=== PATIENT | male | born 1940 | race Two or more races ===

== ENCOUNTER 2018-02-05 07:00 | Day surgery (SDC) | payer OTHER ==
[~2018-02-05] VITALS: Ht 170.2 cm; Wt 68.0 kg
[~2018-02-05 07:00] MED LIST: ADULT ASPIRIN81 MG; ATORVASTATIN CA40 MG; CARVEDILOL3.125 MG; CIPROFLOXACIN750 MG PO; CLONAZEPAM1 MG PO; DOCUSATE SODIU100 MG PO; ENALAPRIL MALE2.5 MG; FINASTERIDE5 MG; GABAPENTIN800 MG PO; GLIPIZIDE10 MG; METFORMIN HCL500 M2; PERCOCET 5/3251 TAB PO; TAMS0.4C
[2018-02-06] MEDS ORDERED: DOCUSATE SODIU100 MG PO (09:37)
[2018-02-06] MEDS ORDERED: GABAPENTIN800 MG PO (09:37)
[2018-02-06] MEDS ORDERED: AMOX-CLAV 875-1 EACH PO (09:40)
[2018-02-06] MEDS ORDERED: PERCOCET 5-3251 EACH PO (09:41)
[2018-02-06] MEDS ORDERED: CLONAZEPAM1 MG PO (09:41)
== END 2018-02-06 08:00 | disposition home or self-care (01) ==
LOC: CIR.AMB 07:00 → O/R 12:30 → EDSTATUS 12:30 → O/R 13:30 → PED 15:09 → O/R 15:09 → CIR.AMB 02-06 08:00 → O/R 02-06 13:37 → PED 02-06 13:37
DX: M48.061 Spinal stenosis, lumbar region without neurogenic claudication (principal); I25.10 Atherosclerotic heart disease of native coronary artery without angina pectoris; I10 Essential (primary) hypertension; E11.9 Type 2 diabetes mellitus without complications; I25.2 Old myocardial infarction

== ENCOUNTER 2018-03-21 19:42 | Emergency (ER) | payer OTHER ==
[~2018-03-21] VITALS: Ht 170.2 cm; Wt 59.0 kg
[~2018-03-21 19:42] MED LIST changes: +AMOX-CLAV 875-1 EACH PO; +PERCOCET 5-3251 EACH PO
== END 2018-03-21 21:40 | disposition home or self-care (01) ==
LOC: ER 19:42
DX: M54.16 Radiculopathy, lumbar region (principal)

== ENCOUNTER → 2018-03-26 | Emergency (ER) | payer OTHER ==
[~2018-03-26] VITALS: Ht 170.2 cm; Wt 61.2 kg
== END | disposition left against medical advice (07) ==
LOC: ER 09:56
DX: M54.5 Low back pain (principal)

== ENCOUNTER 2018-05-01 14:07 | Inpatient (IN) | payer OTHER ==
[~2018-05-01] VITALS: Ht 170.2 cm; Wt 61.2 kg
[2018-05-01] MEDS ORDERED: TAMS0.4C (14:16)
[2018-05-01] MEDS ORDERED: LYRICA150 MG (14:16)
[2018-05-01] MEDS ORDERED: NEURONTIN300 MG (14:16)
[2018-05-01] MEDS ORDERED: PROSCAR5 MG (14:16)
[2018-05-02] MEDS ORDERED: COLACE100 MG PO (14:29)
[2018-05-02] MEDS ORDERED: NEURONTIN800 MG PO (14:30)
[2018-05-02] MEDS ORDERED: AMOX-CLAV 875-1 EACH PO (14:31)
[2018-05-02] MEDS ORDERED: CLONAZEPAM1 MG PO (14:31)
[2018-05-02] MEDS ORDERED: PERCOCET 5-3251 EACH PO (14:31)
== END 2018-05-03 16:04 | DRG 520 ==
LOC: ER 14:07 → SURH 16:37 → SEC-K 16:37 → SURH 21:56
PROVIDERS: Orthopaedic Surgery Orthopaedic Surgery of the Spine
PROC: BR29YZZ Computerized Tomography (CT Scan) of Lumbar Spine using Other Contrast (ICD-10-PCS; 2018-05-01)
PROC: 0SB20ZZ Excision of Lumbar Vertebral Disc, Open Approach (ICD-10-PCS; 2018-05-02)
PROC: 00NY0ZZ Release Lumbar Spinal Cord, Open Approach (ICD-10-PCS; principal; 2018-05-02 18:00)
DX: M51.16 Intervertebral disc disorders with radiculopathy, lumbar region (principal); M48.061 Spinal stenosis, lumbar region without neurogenic claudication; M47.26 Other spondylosis with radiculopathy, lumbar region; E11.9 Type 2 diabetes mellitus without complications; I10 Essential (primary) hypertension; I25.10 Atherosclerotic heart disease of native coronary artery without angina pectoris